=== PATIENT | male | born 1995 | race Caucasian/White ===

== ENCOUNTER 2018-07-09 16:34 | Emergency (ER) | payer MEDICAID ==
[~2018-07-09] VITALS: Ht 175.3 cm; Wt 105.3 kg
[2018-07-09 16:56] VITALS: BP 123/58
--- NOTE | 2018-07-09 17:05 | NUR ---
LT EAR PAIN X 1 DAYS AND SORE THROAT X 2 WEEKS 4/10 ACHING. DENIES TAKING MEDICATION AT HOME. PT DENIES N/V/D; SKIN IS INTACT, PINK/WARM/DRY; AAOX4, PERRL, WITH EVEN AND STEADY GAIT; LUNGS CLEAR BL, BREATHING UNLABORED; HR EVEN AND REGULAR, BL PERIPHERAL PULSES PRESENT; BS ACTIVE X4, PT DENIES ANY FEVER, CP, SOB, OR COUGH AT THIS TIME; PT STATES 0/10 PAIN AT THIS TIME; VSS; PATIENT POSITIONED FOR COMFORT; HOB ELEVATED; BEDRAILS UP X2; BED DOWN.
--- NOTE | 2018-07-09 17:05 | NUR ---
PT AMBULATED TO BED 7
[2018-07-09 18:26] VITALS: BP 122/61
--- NOTE | 2018-07-09 18:27 | NUR ---
Patient discharged with v/s stable. Written and verbal after care instructions given and explained. Patient alert, oriented and verbalized understanding of instructions. Ambulatory with steady gait. All questions addressed prior to discharge. ID band removed. Patient advised to follow up with PMD. Rx of CODEINE, FLONASE given. Patient educated on indication of medication including possible reaction and side effects. Opportunity to ask questions provided and answered.
== END 2018-07-09 18:27 | disposition home or self-care (01) ==
LOC: MED 16:34
DX: B34.9 Viral infection, unspecified (principal); H92.02 Otalgia, left ear; R04.2 Hemoptysis
CPT/HCPCS: 99283

== ENCOUNTER 2018-11-13 06:34 | Emergency (ER) | payer MEDICAID ==
[~2018-11-13] VITALS: Ht 177.8 cm; Wt 93.0 kg
--- NOTE | 2018-11-13 06:41 | NUR ---
PT AMBULATED TO BED #11
[2018-11-13 06:50] VITALS: BP 99/49
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
[2018-11-13] MEDS ORDERED: LIDOCAINE 1% 500 MG/50 ML VIAL INJ SCH (07:00)
[2018-11-13] MEDS ORDERED: LIDOCAINE MPF 1% 5mL VIAL INJ ONE (07:15)
--- NOTE | 2018-11-13 07:21 | NUR ---
received report from jhonny king for continuation of care
--- NOTE | 2018-11-13 07:22 | NUR ---
DR. JARAMILLO AT BEDSIDE PERFORMING SUTURES
[2018-11-13] MEDS ORDERED: LIDOCAINE MPF 1% - 5 mL VIAL 5 ML ONE (07:23)
--- NOTE | 2018-11-13 07:37 | NUR ---
pt to radiology
[2018-11-13] MEDS ORDERED: BACITRACIN OINT 500 UNITS/GM PKT TP ONE ×2 (07:55→08:00)
--- NOTE | 2018-11-13 07:59 | NUR ---
APPLIED BASOTRACIN AND NON-ADHERENT DRESSING WITHOUT ANY ISSUES
[2018-11-13 08:17] VITALS: BP 108/61
--- NOTE | 2018-11-13 08:18 | NUR ---
Patient discharged with v/s stable. Written and verbal after care instructions given and explained. Patient verbalized understanding. Ambulatory with steady gait. All questions addressed prior to discharge. Advised to follow up with PMD.
== END 2018-11-13 08:18 | disposition home or self-care (01) ==
LOC: MED 06:34
DX: S01.21XA Laceration without foreign body of nose, initial encounter (principal); S00.511A Abrasion of lip, initial encounter; R55 Syncope and collapse; V43.52XA Car driver injured in collision with other type car in traffic accident, initial encounter; Y93.84 Activity, sleeping; Y92.412 Parkway as the place of occurrence of the external cause; Y99.8 Other external cause status
CPT/HCPCS: 12051; 70160; 99284; J2001